=== PATIENT | male | born 2000 | race Caucasian/White ===

== ENCOUNTER 2021-06-28 12:50 | Outpatient (CLI) | payer OTHER, SELFPAY ==
[2021-06-28 15:02] LABS: SARS-CoV-2 RNA PCR Negative (Negative)
== END 2021-06-28 12:51 | disposition home or self-care (01) ==
LOC: CHSLAB 12:57
PROVIDERS: PCP Internal Medicine; Visit Provider Internal Medicine
DX: Z20.822 Contact with and (suspected) exposure to COVID-19 (principal)
CPT/HCPCS: C9803; U0003; U0005

== ENCOUNTER 2022-07-16 13:46 | Outpatient (CLI) | payer OTHER, SELFPAY | END 2022-07-16 13:47 | disposition home or self-care (01) | LOC: ANHSURGERY 13:50 | PROVIDERS: PCP Internal Medicine; Visit Provider Surgery | DX: Z01.812 Encounter for preprocedural laboratory examination (principal); K43.9 Ventral hernia without obstruction or gangrene | CPT/HCPCS: 36415; 86850; 86900; 86901 ==

== ENCOUNTER 2022-07-24 01:24 | Day surgery (SDC) | payer OTHER, SELFPAY ==
[2022-07-11 13:09] VITALS: BMI 38.2
--- NOTE | 2022-07-11 13:14 | PC.NURSE ---
Report to the Outpatient Waiting Room, entrance under the green pavilion located off [facility], at time 6:30 on date 07/24/22. Planned Procedure Time: 8:30. Time changes happen often and if your time is changed the preop area will call you the afternoon before. - You and your visitor will be asked to self-screen and do not enter if you have any COVID symptoms. - Only one visitor is requested with a max of two and NO children visitors are allowed at this time. - The patient visitor may be requested to leave or wait in car when not with patient due to distancing restrictions. - A mask is optional within the hospital. Patients may have clear liquids (water, carbonated beverages, clear teas, apple juice) until 3 hours prior to surgery (5:30) with a maximum of 20 ounces. - No food from midnight until time of surgery Take the following medications with a SIP of water the morning of surgery: N/A Medications to discontinue per physician: N/A Date to take last dose: N/A Please no make-up, nail chilean, hairspray, perfume, deodorant, or body powder the day of surgery. No jewelry (including any body piercings) or valuables the day of surgery, leave them at home. Please take a shower or bath the night before, or the morning of, surgery with an antibacterial soap (HIBICLENS). Wear comfortable, loose fitting clothing. - Jewelry must be removed prior to entering the operating room. Rings and piercings that are not removed may be cut off. - The hospital will not accept responsibility for valuables. - Please leave all valuables, including medications, at home the day of surgery. If you are going home after surgery, a licensed pick up driver must drive you home. - NO public transportation without another adult if you receive anesthesia. - We recommend that an adult stay with you for 24 hours following discharge. - We also recommend that you do not drive, make important decision, drink alcoholic beverages, or take any drugs that were not prescribed by your health care provider for at least 24 hours after your discharge time. Follow any additional instructions given to you from your surgeon. If you or anyone in your household have experienced Covid symptoms in the past week, please notify your surgeon or the nurse liaison at the phone number below for possible testing. Telephone instructions given to PT - ISABEL CUEVAS and asked if any additional questions and then verbalized understanding. Patient advised to call surgeon office or pre surgery nurse liaison [phone] if any additional questions.
[2022-07-24] VITALS (11 sets, daily range): BP systolic 129–153; BP diastolic 72–94; PULSE 69–93; RESP 12–18; TEMP 36.2–36.4; O2SAT 94–100
[2022-07-24] MEDS: ACETAMINOPHEN 500 MG TABLET 1000 MG PO (07:11)
--- NOTE | 2022-07-24 07:21 | PM.IMHP ---
H&P: HPI History of Present Illness Date/Time: 07/24/22 07:21 Chief Complaint: ventral hernia Narrative: 22 yo man presents for ventral hernia repair. He reports no changes since last seen in office. Review of Systems Review of Systems: All systems reviewed & are unremarkable except as noted in HPI and below Constitutional: Constitutional: Denies chills, Denies fever(s), Denies headache(s) and Denies weight loss Eyes: Eyes: Denies change in vision ENT: Denies dizziness, Denies headache(s), Denies neck mass and Denies throat swelling Cardiovascular: Cardiovascular: Denies chest pain, Denies lightheadedness and Denies dyspnea Respiratory: Respiratory: Denies cough, Denies dyspnea and Denies wheezing Gastrointestinal: Gastrointestinal: Denies abdominal pain, Denies change in bowel habits, Denies nausea and Denies vomiting Genitourinary: Genitourinary: Denies hematuria and Denies dysuria Musculoskeletal: Musculoskeletal: Reports as per HPI Integumentary/Breasts: Skin/Breast: Reports as per HPI Neurologic: Denies dizziness and Denies headache(s) Allergic/Immunologic: Allergic/Immunologic: Denies throat swelling and Denies wheezing [facility] Family History Family History (Updated 02/12/22 @ 13:41 by Saumya Marie Henrry) Father Diabetes mellitus Mother Cervical cancer Hypertension Social History Social History Smoking status: Never smoker Alcohol intake: current Drinks per week: 15 Substance use: never Substance use type: does not use Living arrangements: with family Spiritual care concerns: No Meds Home Medications and Allergies Home Medications Medication Instructions Recorded Confirmed Type No Home Medications 07/11/22 07/24/22 History Allergies Allergy/AdvReac Type Severity Reaction Status Date / Time No Known Allergies Allergy Verified 07/24/22 07:07 Vital Signs Vital Signs - 24 hr 07/24/22 06:38 Temperature 36.4 C L Pulse Rate 88 Respiratory Rate 16 Blood Pressure 141/83 H Pulse Oximetry 100 Oxygen Delivery Room Air Exam Const: General: no acute distress and alert Orientation/consciousness: patient oriented x3 HENMT: Head: normocephalic and atraumatic Ears: hearing grossly normal bilaterally Face/Nose/Sinus: Normal nares present Mouth: Yes Normal oral and palatal mucosa present Eyes: Periorbital: periorbital findings normal Sclera: sclerae normal EOM: EOMs intact bilaterally Neck: Neck: normal visual inspection, no lymphadenopathy and trachea midline Chest: Chest palpation & inspection: normal inspection of the chest Resp: Effort & Inspection: normal respiratory effort Auscultation: clear to auscultation bilaterally Cardio: Jugular venous distension: no JVD Rate: regular rate Rhythm: regular rhythm Heart sounds: S1 normal heart sound present and S2 normal heart sound present Peripheral pulses: Peripheral pulses 2+ throughout GI: Inspection: normal to inspection GI Palp: Yes Soft to palpation, No Tenderness to palpation present (GI), No Guarding due to palpation present (GI), Yes Hernia present (2cm ventral hernia just superior to umbilicus) and No Rebound tenderness present Percussion: Yes normal to percussion Auscultation: normal bowel sounds : General: Yes no CVA tenderness Back/Spine/Pelvis: Back: no CVA tenderness Neuro: General: patient oriented x3, no focal motor deficits and CN's II-XI intact bilaterally Cognition (Neuro): normal cognition Speech: normal speech Motor exam (neuro): 5/5 motor strength present throughout Extrem: General: capillary refill normal and no clubbing, cyanosis or edema Assessment and Plan Assessment and plan (1) Ventral hernia without obstruction or gangrene: Code(s): K43.9 - Ventral hernia without obstruction or gangrene Status: Acute Assessment and Plan: I have recommended laparoscopic ventral hernia repair w
--- NOTE | 2022-07-24 07:22 | WPDHPUPDATE1 ---
History and Physical Update Update Date/Time: 07/24/22 07:22 History and Physical has been reviewed, including an updated exam of the patient. There are NO changes in the patient's condition. Risks, benefits, and alternatives have been discussed and questions answered. Patient agrees to proceed with procedure.
[2022-07-24] MEDS: KETOROLAC 15 MG/ML VIAL (*BKC) IV PUSH (07:39)
--- NOTE | 2022-07-24 08:30 | P.PNAN_ITS ---
Anes - Initial Pre Proc Eval Procedure: Operation Date: 07/24/22 08:30 Proposed Procedures p Laparoscopic Ventral Hernia Repair with Mesh Davinci Assisted - Herrera Juarez DO Date/Time: 07/24/22 08:30 Surgeon: Herrera Juarez DO Pre Op Diagnosis: ventral hernia Patient Data Age: 22 Gender: M Height: 1.85 m Weight: 133.4 kg Last Vital Signs Temp 97.5 F L 07/24/22 06:38 Pulse 88 07/24/22 06:38 Resp 16 07/24/22 06:38 BP 141/83 H 07/24/22 06:38 Pulse Ox 100 07/24/22 06:38 O2 Del Method Room Air 07/24/22 06:38 Allergies Allergy/AdvReac Type Severity Reaction Status Date / Time No Known Allergies Allergy Verified 07/24/22 07:07 Home Medications Medication Instructions Recorded Confirmed Type No Home Medications 07/11/22 07/24/22 History Patient hx anesthesia problems: none Family hx anesthesia problems: none Results Review: All pre-operative results and documents have been reviewed as part of the pre- operative evaluation. [facility] Family History Family History (Updated 02/12/22 @ 13:41 by Saumya Marie Henrry) Father Diabetes mellitus Mother Cervical cancer Hypertension Social History Social History Smoking status: Never smoker Alcohol intake: current Drinks per week: 15 Substance use: never Substance use type: does not use Living arrangements: with family Spiritual care concerns: No Anes - Eval Final PreProcedure Day of Procedure 07/24/22 08:30 Patient weight: obese Heart: regular rate and rhythm Lungs: clear to auscultation Airway: Mallampati scale class II Neurological: alert and oriented Last oral intake: >/= 8 hours ASA classification: II Emergent: no Anesthetic plan: proceed Anesthesia type and monitoring: general ETT Results Review: All pre-operative results and documents have been reviewed as part of the pre- operative evaluation. Informed Consent: The patient's anesthetic plan and its attendant risks and benefits were discussed with the patient/family/POA. Questions were solicited and answers provided to the satisfaction of the patient/family/POA.
[2022-07-24] MEDS: LACTATED RINGERS 1,000 ML 30 ML IV CONT ×2 (08:34→10:35)
[2022-07-24] MEDS: ceFAZolin 3 GM/D5W 100 ML 100 ML IVPB (08:37)
--- NOTE | 2022-07-24 10:17 | W.PM.PROC2 ---
Procedure Note - Detailed Date of Procedure 07/24/22 Pre-op Diagnosis ventral hernia Post-op Diagnosis Same Procedure Performed Laparoscopic Ventral Hernia Repair with Mesh, da Breanna assisted Surgeon Herrera Juarez DO Anesthesia General and Local (Exparel) Indications This is a 22-year-old man who presented with a bulge that he noticed above his umbilicus about 8 months ago. He noticed this when sitting up initially. He does have some discomfort in the area. Was found have a reducible ventral hernia just superior to the umbilicus exam. Discussions were made with the patient about treatment options and decision was made to proceed with robotic assisted laparoscopic ventral hernia repair with mesh. Findings Laparoscopic ventral hernia repair was performed. The patient was found to have a 1.5 cm ventral hernia located about 2 cm superior to the umbilicus. The robotic transabdominal preperitoneal approach was utilized for repair. A preperitoneal pocket was created and the hernia sac was reduced from within the hernia defect. Hernia defect was closed using 0 Stratafix running absorbable suture. A 10 cm x [address] mesh was placed within the preperitoneal pocket and was secured to the abdominal wall using 3-0 Vicryl simple interrupted sutures. No specimens were obtained for pathology. Description of Procedure Procedure as well as risks, benefits, and alternatives were discussed with the patient. Written consent was obtained and placed in chart prior to procedure. Patient was brought back to surgical suite. He was placed supine on operating table. Time-out was done to confirm patient and procedure. He was then intubated by the anesthesia department. A bump was placed under his left hip, and the bed was flexed slightly to extend the space between his costal margin and iliac crest. His abdomen was prepped and draped in sterile fashion using chlorhexidine prep. A 5 millimeter incision was made in the left upper quadrant, and a 5 millimeter Optiview trocar was advanced through the abdominal layers under direct visualization. Once inside the abdominal cavity, carbon dioxide insufflation was used to create a pneumoperitoneum. His abdomen was inspected. An 8 millimeter incision was made in the left lower quadrant, and an 8 millimeter robotic trocar was placed under direct visualization. Another 8 millimeter incision was made in the left lateral abdomen, and an 8 millimeter robotic trocar was placed under direct visualization. Exparel was infiltrated along the lateral abdominal wallace to perform a transversus abdominis plane block bilaterally. The 5 millimeter port was removed, the incision was extended to 12 millimeters, and a 12 millimeter air seal port was placed under direct visualization. A Syed-Jarrett cone was also used to place an 0-Vicryl simple interrupted suture at this trocar site. The robotic arms were brought up to the patient's bedside and secured to the ports. The camera and instruments were inserted, and I then moved over to the robotic console and took control of the camera and instruments. After careful thorough inspection of the abdominal cavity, I began my dissection at the hernia. A preperitoneal plane was developed along the left lateral abdominal wall and this was extended medially to the hernia sac which was then reduced. Preperitoneal pocket was then developed further to the right lateral side so that there was a wide enough pocket to allow for mesh placement. I then measured the hernia size. The hernia measured 1.5 cm. The fascia was closed using an 0-Stratafix running suture in a vertical fashion. A 15 cm x [address] mesh was then placed within the preperitoneal pocket. This was oriented vertically with the mesh centered on the hernia defect. The mesh was then secured to the abdominal wall using 3-0 Vicryl simple interrupted sutures. The peritoneum was then closed over the mesh using 3 0 V lock runnin
--- NOTE | 2022-07-24 11:29 | SUR.PHASEI ---
1129: Simple mask removed.
[2022-07-24] MEDS: oxyCODONE HCL (*CRX) 5 MG TAB IR PO (12:08)
== END 2022-07-24 12:46 | disposition home or self-care (01) ==
PROVIDERS: PCP Internal Medicine; Visit Provider Surgery
PROC: (CPT 49652; principal; 2022-07-24 08:30)
DX: K43.9 Ventral hernia without obstruction or gangrene (principal); E66.9 Obesity, unspecified; Z68.38 Body mass index [BMI] 38.0-38.9, adult
CPT/HCPCS: 49652; S2900; 36415; 86850; 86900; 86901; A9270; C1781; C9290; J0330; J0690; J1100; J1885; J2250; J2704; J2710; J3010; J7120